=== PATIENT | female | born 1985 | race Caucasian/White ===

== ENCOUNTER 2017-04-28 03:29 | Observation (INO) | payer OTHER ==
[2017-04-28] VITALS (7 sets, daily range): BP systolic 118–142; BP diastolic 67–77
[~2017-04-28] VITALS: Ht 149.9 cm; Wt 83.9 kg
[2017-04-28] MEDS ORDERED: MORPHINE SULFATE 2 MG/ML DISP.SYRIN. IV PRN (03:45)
[2017-04-28] MEDS ORDERED: PROCHLORPERAZINE 10 MG/2 ML VIAL. IV PRN ×2 (03:45→05:00)
[2017-04-28] MEDS ORDERED: ONDANSETRON PF 4 MG/2 ML VIAL. IV PRN ×2 (03:45→05:00)
[2017-04-28] MEDS ORDERED: HYDROmorphone 2 MG/ML VIAL IV PRN (03:45)
[2017-04-28] MEDS ORDERED: fentaNYL PF VIAL 100 MCG/2 ML VIAL IV PRN ×2 (03:45)
[2017-04-28] MEDS ORDERED: IV RINGERS,LACTATED 1000ML 1,000 ML IV SCH (03:45)
[2017-04-28] MEDS ORDERED: LIDOCAINE 1% 1 ML SYRINGE. ID PRN (03:45)
[2017-04-28] MEDS ORDERED: SUCCINYLCHOLINE 200 MG/10 ML VIAL. ONE (03:46)
--- NOTE | 2017-04-28 03:46 | PDOC1 ---
History and Physical Date of Admission Date of Admission DATE: 04/28/17 TIME: 03:41 Identification/Chief Complaint Chief Complaint ruptured ectopic Problems: Source Source: Patient History of Present Illness History of Present Illness 31 y/o A2 @ 7 wks gestation presented to ED with c/o abd pain that worsened for the past 5 days. She has h/o Right ectopic treated with methotrexate in the past. SHe also has risk factors for ectopic including c/s, previous ectopic and Dx LPSC. Past Surgical History Past Surgical History: , Other ([facility] ovarian cystectomy, D&C) Social History Smoke: No ALCOHOL: none Drugs: None Allergies Allergies: Coded Allergies: No Known Drug Allergies (Unverified , 04/28/17) ROS General: YES: Fatigue, Appetite, No: Chills, Night Sweats, Malaise, Other PSYCHOLOGICAL ROS: YES: Anxiety, No: Behavioral Disorder, Concentration difficultie, Decreased libido, Depression, Disorientation, Hallucinations, Hostility, Irritablity, Memory difficulties, Mood Swings, Obsessive thoughts, Physical abuse, Sexual abuse, Sleep disturbances, Suicidal ideation, Other Eyes: No Blurry vision, No Decreased vision, No Double vision, No Dry eyes, No Excessive tearing, No Eye Pain, No Itchy Eyes, No Loss of vision, No Photophobia , No Scotomata, No Uses contacts, No Uses glasses, No Other HEENT: No: Heacaches, Visual Changes, Hearing change, Nasal congestion, Nasal discharge, Oral lesions, Sinus pain, Sore Throat, Epistaxis, Sneezing, Snoring, Tinnitus, Vertigo, Vocal changes, Other ALLERGY AND IMMUNOLOGY: No: Hives, Insect Bite Sensitivity, Itchy/Watery Eyes, Nasal Congestion, Post Nasal Drip, Seasonal Allergies, Other Hematological and Lymphatic: No: Bleeding Problems, Blood Clots, Blood Transfusions, Brusing, Night Sweats, Pallor, Swollen Lymph Nodes, Other ENDOCRINE: No: Breast Changes, Galactorrhea, Hair Pattern Changes, Hot Flashes , Malaise/lethargy, Mood Swings, Palpitations, Polydipsia/polyuria, Skin Changes , Temperature Intolerance, Unexpected Weight Changes, Other Breast: No New/Changing Breast Lumps, No Nipple changes, No Nipple discharge, No Other Respiratory: No: Cough, Hemoptysis, Orthopnea, Pleuritic Pain, Shortness of breath, SOB with excertion, Sputum Changes, Stridor, Tachypnea, Wheezing, Other Cardiovascular: No Chest Pain, No Palpitations, No Orthopnea, No Paroxysmal Noc. Dyspnea, No Edema, No Lt Headedness, No Other Gastrointestinal: Yes Abdominal Pain, No Nausea, No Vomiting, No Diarrhea, No Constipation, No Melena, No Hematochezia, No Other Genitourinary: No Dysuria, No Frequency, No Incontinence, No Hematuria, No Retention, No Discharge, No Urgency, No Pain, No Flank Pain, No Other, No , No , No , No , No , No , No Musculoskeletal: No Gait Disturbance, No Joint Pain, No Joint Stiffness, No Joint Swelling, No Muscle Pain, No Muscular Weakness, No Pain In:, No Swelling In:, No Other VTE Prophylaxis Ordered VTE Prophylaxis Devices: Yes VTE Pharmacological Prophylaxi: No Assessment/Plan Assessment/Plan A: Ruptured ectopic P: Admit for LPSC evacuation ectopic . Counseled on risks, benefits and expectations. MACK REAL Jr, MD Apr 28, 2017 03:46
[2017-04-28] MEDS ORDERED: BUPIVAC MPF-EPI 0.5%-1:200000 30 ML VIAL. ONE (03:59)
[2017-04-28] MEDS ORDERED: SURGICEL HEMOSTAT 4X8 EACH. ONE (03:59)
[2017-04-28] MEDS ORDERED: LIDOCAINE 2% PF Vial for OR 5 ML VIAL. ONE (04:04)
[2017-04-28] MEDS ORDERED: DEXAMETHASONE SOD PHOS 20 MG/5 ML VIAL. ONE (04:04)
[2017-04-28] MEDS ORDERED: PROPOFOL 20 ML IV ONE (04:04)
[2017-04-28] MEDS ORDERED: ONDANSETRON PF 4 MG/2 ML VIAL. ONE (04:04)
[2017-04-28] MEDS ORDERED: fentaNYL PF VIAL 100 MCG/2 ML VIAL ONE ×2 (04:05→04:56)
[2017-04-28] MEDS ORDERED: GLYCOPYRROLATE 1 MG/5 ML VIAL. ONE (04:25)
[2017-04-28] MEDS ORDERED: NEOSTIGMINE 10 MG/10 ML VIAL. ONE (04:25)
[2017-04-28] MEDS ORDERED: SEVOFLURANE 31 TO 60 MINUTES. IH ONE (04:50)
--- NOTE | 2017-04-28 04:53 | PDOC ---
BRIEF OPERATIVE NOTE Pre-Op Diagnosis Ruptured ectopic Post-Op Diagnosis Ruptured Right ectopic Procedure Performed [facility] Right Salpingectomy Surgeon Dr. Kee Anesthesia Type: General Blood Loss 500ml ( mostly blood clot in abd from ruptured ectopic ) Specimens Obtained Right fallopian tube with ectopic Findings ruptured right ectopic , 500 ml blood clot in abd; nml Left fallopian tube and left ovary; possible endometriosis Right broad ligament Complications none MACK KEE Jr, MD Apr 28, 2017 04:53
[2017-04-28] MEDS ORDERED: 0.9 % SODIUM CHLORIDE 10 ML DISP.SYRIN. IV PRN (05:00)
[2017-04-28] MEDS ORDERED: CALCIUM CARBONATE 500 MG TAB.CHEW PO PRN (05:00)
[2017-04-28] MEDS ORDERED: diphenhydrAMINE HCL 25 MG CAPSULE PO PRN (05:00)
[2017-04-28] MEDS ORDERED: SIMETHICONE 80 MG TAB.CHEW PO PRN (05:00)
[2017-04-28] MEDS ORDERED: KETOROLAC TROMETHAMINE 30 MG/ML INJ. IV PRN (05:00)
[2017-04-28] MEDS ORDERED: DEXTROSE 50% 25 GM / 50ML DISP.SYRIN. IV PRN (05:00)
[2017-04-28] MEDS ORDERED: ZOLPIDEM 5 MG TABLET. PO PRN (05:00)
[2017-04-28] MEDS ORDERED: diphenhydrAMINE 50 MG/ML VIAL IV PRN (05:00)
[2017-04-28 05:05] LABS: HEMATOCRIT 29.9 % (36.0-47.0); HEMOGLOBIN 10.2 g/dL (12.0-15.5)
[2017-04-28] MEDS ORDERED: GABAPENTIN 300 MG CAPSULE. PO SCH (06:00)
--- NOTE | 2017-04-28 06:54 | OP ---
DATE OF SURGERY: PREOPERATIVE DIAGNOSIS: Ruptured ectopic . POSTOPERATIVE DIAGNOSIS: Ruptured right ectopic . PROCEDURE: Laparoscopic right salpingectomy. SURGEON: Ga Kee M.D. ANESTHESIA: GETA. ESTIMATED BLOOD LOSS: 500 mL, mostly blood clot in the abdomen from the ruptured right ectopic . FINDINGS: Ruptured right ectopic , 500 mL blood clot in the abdomen. Normal left fallopian tube, normal left ovary, possible endometriosis in the right broad ligament. SUMMARY: A 31-year-old 6, para 3, A2 at about 7 weeks' gestation who presented to [facility] with worsening abdominal pain for the last several days. The patient was found to have ruptured ectopic . She was transferred to [facility]. She was counseled on risks, benefits and expectations of laparoscopic right salpingectomy, possible salpingo-oophorectomy and voiced clear understanding to proceed. DESCRIPTION OF PROCEDURE: The patient was taken to surgery suite and placed in dorsal lithotomy position. She was prepped with Betadine solution for vaginal prep and ChloraPrep for abdominal prep. After adequate anesthesia, bivalve speculum was placed vaginally. Anterior lip of cervix grasped with a single tooth tenaculum. Uterine acorn manipulator was then placed. The bivalve speculum was removed. Attention was now placed on abdomen. Small transverse skin incision was made just below the umbilicus with scalpel. Veress needle was then placed through the infraumbilical incision site. The abdomen was allowed to insufflate up to 1.5 liters of CO2 gas. The Veress needle was then removed, 5-mm trocar was placed. Scope was positioned, 500 mL blood clot was in the abdomen. Uterus was mildly enlarged. Left fallopian tube and ovary appeared normal. Right ovary appeared normal. There was a ruptured right fallopian tube. Two incisions were made in the left lower quadrant, which an 11 mm and a 5 mm port was placed with aid of graspers and suction irrigation. Suction irrigation was utilized to suction out the blood clot in the abdomen. The right fallopian tube was then coagulated and dissected away from the right adnexa using the EnSeal device. The right fallopian tube including the ectopic was removed using an Endobag. Suction irrigation was utilized to verify good hemostasis. Small amount of normal saline was left in the posterior cul-de-sac. The trocars were then removed under direct visualization. Abdomen was allowed to deflate as much as possible along with mechanical manipulation. The 11 mm port was closed at the fascial layer using 2-0 Vicryl suture in a [id number] manner. These three skin incisions were closed at the level of the skin using 4-0 Vicryl suture in subcuticular manner. Marcaine 0.5% with epinephrine was injected at each incision site. The single tooth tenaculum and uterine acorn manipulator were removed. The patient tolerated the procedure well and was taken to recovery in stable condition. Sponge and needle count correct x 3. GA KEE MD DR: ALEXIS/delaney JOB#: [id number] / [id number]
[2017-04-28] MEDS: oxyCODONE/APAP 5/325 1 TAB TABLET PO PRN ×3 (09:09→17:55)
--- NOTE | 2017-04-28 09:25 | DISCH ---
DISCHARGE INSTRUCTIONS Condition on Discharge Condition on Discharge: Stable Activity After Discharge Activity Instructions for Disc: Activity as tolerated Lifting Instructions after Dis: No heavy lifting Driving Instructions after Dis: Do not drive today Diet after Discharge Diet after Discharge: Regular Contacting the [facility] after DC Call your doctor for: Concerns you may have Follow-Up Follow up with: Dr. Kee in 1 week. MACK KEE Jr, MD Apr 28, 2017 09:25
--- NOTE | 2017-04-28 09:25 | PDOC ---
SURGICAL PROGRESS NOTE Subjective Pt. feeling well. Pain controlled. SHe is tolerating regular diet, ambulating in room and voiding without difficulty. Vital Signs Vital Signs Date Time Temp Pulse Resp B/P (MAP) Pulse Ox O2 Delivery O2 Flow Rate FiO2 04/28/17 09:09 Room Air 04/28/17 08:30 98.0 90 18 132/77 (95) 97 98.0 04/28/17 05:21 10 I&O Intake and Output 04/28/17 07:00 Intake Total 550 ml Output Total 500 ml Balance 50 ml IV Total 550 ml Estimated Blood Loss 500 ml PATIENT HAS A FLYNN: No General: Alert, Oriented X3, Cooperative HEENT: Atraumatic Lungs: Clear to auscultation Heart: Regular rate Abdomen: Normal bowel sounds, Soft, No tenderness, No masses Extremities: No edema Psych/Mental Status: Mental status NL Labs Laboratory Tests Test 04/28/17 05:00 Hemoglobin 10.2 g/dL (12.0-15.5) Hematocrit 29.9 % (36.0-47.0) Laboratory Tests Test 04/28/17 05:00 Hemoglobin 10.2 g/dL (12.0-15.5) Hematocrit 29.9 % (36.0-47.0) Assessment/Plan A: POD#0 s/p LPSC Right Salpingectomy P: D/c home. F/u in 1 week. Problems: MACK REAL Jr, MD Apr 28, 2017 09:25
[2017-04-28] MEDS ORDERED: IBUP-1060 PO (09:26)
[2017-04-28] MEDS ORDERED: DOCU-109 PO (09:26)
[2017-04-28] MEDS ORDERED: OXYC-323 PO (09:26)
--- NOTE | 2017-04-29 13:54 | PATHOLOGY ---
PATHOLOGY REPORT * * * * * * * * FINAL DIAGNOSIS: Fallopian tube,laparoscopic right salpingectomy: - Ectopic tubal , ruptured. - Hematosalpinx. - Paratubal cysts. (JPM:mgr; 04/29/2017) REPORT ELECTRONICALLY SIGNED BY: Rhett Farnsworth M.D. DATE/TIME: 04/29/2017 13:51 * * * * * * * * GROSS PATHOLOGY: The specimen is received in formalin, designated, "Clau Roche, right fallopian tube" and consists of a fimbriated fallopian tube that weighs 7.2g and measures 5.4 cm in length and from 0.8 up to 1.9 cm in diameter. The serosa is pink olvera and smooth in the proximal and distal segments. In the midportion the serosa is roughened, irregular and shows large fragments of densely adherent dark reddish purple blood clot. There are two paratubal cysts, measuring 0.5 and 0.8 cm. The midportion is submitted entirely in cassettes A1 through A3. The proximal and distal segments are submitted in cassette A4. (JPM; 04/28/17) INITIAL CPT CODE(S): A; 76379 Professional services performed [place] [email or web address] [place] [address] Technical services performed by [facility] at [address] [place] [address], [facility] [address] [address]. SPECIMEN(S) RECEIVED: A.Right fallopian tube CLINICAL HISTORY: Ruptured ectopic PATIENT: CLAU ROCHE /AGE: 210/28/1985 (Age: 31) PATIENT #: [id number] ALT CASE #: SPECIMEN COLLECTION DATE: 04/28/2017 SPECIMEN RECEIVED DATE: 04/28/2017 [facility] - [id number] [place] [address] - PHONE: [phone] * * * END OF REPORT * * *
== END 2017-04-28 18:00 | disposition home or self-care (01) ==
LOC: 3 NORTH 03:29 → INTOOBSV 03:29
PROVIDERS: ADMIT Obstetrics & Gynecology; ATTEND Obstetrics & Gynecology
DX: O00.90 Unspecified ectopic pregnancy without intrauterine pregnancy (principal); Z3A.01 Less than 8 weeks gestation of pregnancy
CPT/HCPCS: 36415; 59151; 85014; 85018; 86850; 86900; 86901; 88305; 96374; A4215; G0378; G0379; J0330; J0690; J1100; J1885; J2001; J2405; J2704; J2710; J3010; J3490; J7030; J7120